=== PATIENT | male | born 1945 | race African-American/Black ===

== ENCOUNTER 2022-01-18 10:48 | Day surgery (SDC) | payer OTHER ==
[2022-01-15 15:09] VITALS: BMI 25.1
[2022-01-18 11:29] VITALS: RESP 20
[2022-01-18 12:56] VITALS: TEMP 97.9
[2022-01-18 14:09] VITALS: BP 109/65; PULSE 79
== END 2022-01-18 14:00 | disposition home or self-care (01) ==
LOC: FASU-ENDO 10:48
PROVIDERS: ATTEND Internal Medicine Gastroenterology
PROC: 0DB98ZX Excision of Duodenum, Via Natural or Artificial Opening Endoscopic, Diagnostic (ICD-10-PCS; 2022-01-18)
PROC: 0DB68ZX Excision of Stomach, Via Natural or Artificial Opening Endoscopic, Diagnostic (ICD-10-PCS; 2022-01-18)
PROC: 0DJD8ZZ Inspection of Lower Intestinal Tract, Via Natural or Artificial Opening Endoscopic (ICD-10-PCS; principal; 2022-01-18 12:16)
DX: D50.9 Iron deficiency anemia, unspecified (principal); K57.30 Diverticulosis of large intestine without perforation or abscess without bleeding; K29.80 Duodenitis without bleeding; K29.50 Unspecified chronic gastritis without bleeding
CPT/HCPCS: 88305-TC; 88342-TC